=== PATIENT | male | born 1975 | race Native Hawaiian/Other Pacific Islander ===

== ENCOUNTER 2019-12-18 15:20 | Emergency (ER) | payer OTHER ==
[~2019-12-18] VITALS: Ht 170.2 cm; Wt 108.9 kg
[2019-12-18 15:35] VITALS: TEMP 98.9
[2019-12-18 16:52] LABS: PLATELET COUNT 200 K/uL (142-355)
[2019-12-18 17:01] LABS: POTASSIUM 3.9 mmol/L (3.6-5.2)
[2019-12-18 17:09] LABS: PARTIAL THROMBOPLASTIN TIME 29.4 SECONDS (24.5-33.6)
[2019-12-18 18:55] VITALS: BP 126/90
== END 2019-12-18 18:55 | disposition home or self-care (01) ==
LOC: ED 15:20
PROVIDERS: Family Medicine
DX: R51 Headache (principal); M54.32 Sciatica, left side
CPT/HCPCS: 80053; 81000; 85027; 85379; 85610; 85730; 96374; 99284; J1885